=== PATIENT | female | born 1950 ===

== ENCOUNTER 2018-11-28 14:38 | Emergency (ER) | payer OTHER ==
[2018-11-28 14:41] VITALS: BMI 47.7
[2018-11-28] MEDS ORDERED: Fluorescein 1 mg Ophthalmic Strip OD ONE (14:49)
[2018-11-28] MEDS ORDERED: Fluorescein 1 mg Ophthalmic Strip ONE (14:58)
[2018-11-28] MEDS ORDERED: Tetracaine 0.5% Ophth (OR ONLY) ONE ×2 (14:59→15:33)
[2018-11-28] MEDS ORDERED: Tetracaine 0.5% Ophth 2 ML BOTTLE OD ONE (15:03)
--- NOTE | 2018-11-28 15:06 | C.PDOC ---
History Of Present Illness 68 y/o female BIBA from home for right sided facial droop and right sided facial pain which has been present for the past 5 days. Patient was seen for right sided headache without lesions or facial droops in [facility] on 11/23/18. Patient was also seen for skin lesions in right ear questionably without droop in [facility] on 11/26/18. She did not have CT Scan done at either hospital. She was discharged with prescriptions for Augmentin and pain medications for Trigeminal Neuralgia. [place] Chart from 11/23/18 and [place] Chart from 11/26 reviewed. <Domenico Hernandez E - Last Filed: 11/28/18 16:22> History Per: Patient, Family History/Exam Limitations: no limitations Onset/Duration Of Symptoms: Days Current Symptoms Are (Timing): Still Present Severity: Moderate <Domenico Hernandez - Last Filed: 11/28/18 16:22> <Jo Ann Fernandez - Last Filed: 11/28/18 16:31> Chief Complaint (Nursing): Weakness/Neurological Deficit Past Medical History Reviewed: Historical Data, Nursing Documentation, Vital Signs Vital Signs: Last Vital Signs Temp 97.9 F 11/28/18 14:47 Pulse 68 11/28/18 14:47 Resp 22 11/28/18 14:47 BP 154/97 H 11/28/18 14:47 Pulse Ox 98 11/28/18 15:20 Other Surgeries: Hx of surgeries Family History: States: No Known Family Hx <Domenico Hernandez E - Last Filed: 11/28/18 16:22> Vital Signs: Last Vital Signs Temp 97.9 F 11/28/18 14:47 Pulse 68 11/28/18 14:47 Resp 22 11/28/18 14:47 BP 154/97 H 11/28/18 14:47 Pulse Ox 98 11/28/18 14:47 - Medical History PMH: Arthritis, HTN - Social History Hx Alcohol Use: No Hx Substance Use: No - Immunization History Hx Tetanus Toxoid Vaccination: No Hx Influenza Vaccination: No Hx Pneumococcal Vaccination: No <Jo Ann Fernandez - Last Filed: 11/28/18 16:31> Review Of Systems Except As Marked, All Systems Reviewed And Found Negative. Constitutional: Negative for: Fever, Chills Neurological: Positive for: Other (right sided facial droop) <Domenico Hernandez - Last Filed: 11/28/18 16:22> Physical Exam - Physical Exam Appears: No Acute Distress, Other (morbidly obese female) Skin: Warm, Dry Head: Normacephalic, Other (moderate right sided facial droop involving forehead, vesicular lesions to right afce and territory of right trigeminal nerves) Eye(s): bilateral: EOMI, Other (right eyelid lag, fluorescin in eye shows no corneal lesions) Ear(s): Left: Normal, Right: Other (vesicular lesions in right ear and canal) Nose: Normal Oral Mucosa: Moist Neck: Supple Chest: Symmetrical Cardiovascular: Rhythm Regular Respiratory: Normal Breath Sounds, No Rales, No Rhonchi, No Wheezing Gastrointestinal/Abdominal: Normal Exam, Soft, No Tenderness, No Guarding, No Rebound Neurological/Psych: Oriented x3, Normal Speech, Normal Motor, Normal Sensation <Domenico Hernandez - Last Filed: 11/28/18 16:22> ED Course And Treatment Pulse Ox Interpretation: Normal <Domenico Hernandez - Last Filed: 11/28/18 16:22> O2 Sat by Pulse Oximetry: 98 <Jo Ann Fernandez - Last Filed: 11/28/18 16:31> Medical Decision Making Medical Decision Makin/18 [facility] ED, R face pain, dx R side headache, no head CT 11/26: [place] ED: R ear infection and Trigeminal Neuralgia, no sig droop, no head CT Herpetic lesion R ear canal and R face in Trigeminal distribution with neuropathic pain (more pain than minor lesions would suggest) No Corneal lesions noted on R eye fluorescei stain. Pt's nausea prob related to Augmentin Rx'd prior Empiric Prednisone, Acyclovir, Pepcid, outpatient f/u with Optho to monitor for corneal lesions <Domenico Hernandez Last Filed: 11/28/18 16:22> Disposition Doctor Will See Patient In The: Office Counseled Patient/Family Regarding: Studies Performed, Diagnosis - Disposition Disposition Time: 15:26 <Domenico Hernandez - Last Filed: 11/28/18 16:22> <Jo Ann Fernandez - Last Filed: 11/28/18 16:31> - Disposition Referrals: Anni Killian MD [Medical Doctor] - Ronaldo Rueda [Staff Provider] - Additional Instructions: R eye must be taped closed @ night to prevent cornea drying out as she sleeps- (Relaxes open while sleeping) Follow-up with Opthalmology for surveillance of R eye herpetic lesions- none seen today Prednisone taper over 2 weeks as directed Will limit severity of facial droop and Facial pain Hopefully decreases duration of facial droop Acyclovir- antiviral 800 mg FIVE times per day Decreases the severity of viral infection Face Pain: Tramadol 50 mg (narcotic pain reliever) 1 tab every 4-6 hours as needed for more severe pain (the prednisone above is a very powerful anti-inflammatory/pain medicine) Pepcid 20 mg @ night will decrease gastritis and stomach irritation from the Prednisone STOP the Augmentin/Penicillin Antibiotic not necessary causes terrible stomach irritation Follow-up with Dr. Han Call for an appt Prescriptions: Acyclovir [Zovirax] 800 mg PO 5XD 10 Days #50 tab Famotidine [Pepcid] 20 mg PO HS #30 tab predniSONE [predniSONE Tab] 10 mg PO DAILY 11 Days tab traMADol [Ultram] 50 mg PO Q6H PRN #20 tab PRN Reason: pain Instructions: Trigeminal Neuralgia, Shingles (DC), Lunsford's Palsy (DC) Forms: [facility] (Kittitian) - Clinical Impression Clinical Impression: Facial droop, Acute trigeminal herpes zoster - Scribe Statement The provider has reviewed the documentation as recorded by the Scribe Krystal Cliff All medical record entries made by the Scribe were at my direction and personally dictated by me. I have reviewed the chart and agree that the record accurately reflects my personal performance of the history, physical exam, medical decision making, and the department course for this patient. I have also personally directed, reviewed, and agree with the discharge instructions and disposition. <Domenico Hernandez E - Last Filed: 11/28/18 16:22>
[2018-11-28 16:04] VITALS: PULSE 70; RESP 20
[2018-11-28 16:13] VITALS: BP 178/72
[2018-11-28 16:23] VITALS: TEMP 98
[2018-11-28 16:31] VITALS: O2SAT 98
--- NOTE | 2018-11-29 18:36 | CARD ---
APPROVED REPORT Date of service: 11/28/2018 EKG Measurement Heart [id number] <Conclusion> Normal sinus rhythm Voltage criteria for left ventricular hypertrophy Abnormal ECG
== END 2018-11-28 16:36 | disposition home or self-care (01) ==
LOC: C.ER 14:38
DX: R29.810 Facial weakness (principal); B02.9 Zoster without complications